=== PATIENT | male | born 1950 | race Caucasian/White ===

== ENCOUNTER → 2021-12-01 | Outpatient (CLI) | payer OTHER ==
[~2021-12-01] MED LIST: AUGMENTIN 875-1 EACH PO; CELEXA40 MG PO; COLACE 100MG C100 MG PO; ELIQUIS 2.5 MG2.5 MG PO; FERROUS SULFAT325 M2 PO; HUMERA SC; NEURONTIN400 MG PO; OMEPRAZOLE20 MG PO; OXYCODONE; PERCOCET 10-321 EACH PO; PLAQUENIL 200200 MG PO; PREDNISONE5 MG PO; PRINIVIL20 MG PO; RELAFEN 750 MG750 MG PO; SINGULAIR10 MG PO; TRAZODONE HCL100 MG PO
[2021-12-01 10:05] LABS: HEMOGLOBIN 12.9 gm/dl (14.0-17.5); RED BLOOD COUNT 4.37 M/UL (4.20-5.50); WHITE BLOOD COUNT 6.8 K/UL (4.5-11.0)
[2021-12-01 10:40] LABS: BUN/CREATININE RATIO 7 (0-10)
== END ==
LOC: OPSV2 08:53 → EDSTATUS 09:00 → OPSV2 09:00
PROVIDERS: Orthopaedic Surgery
DX: Z01.818 Encounter for other preprocedural examination (principal); I10 Essential (primary) hypertension; R94.31 Abnormal electrocardiogram [ECG] [EKG]
CPT/HCPCS: 71046; 80048; 85027; 93005

== ENCOUNTER → 2021-12-08 | Day surgery (SDC) | payer OTHER ==
[~2021-12-08] MED LIST changes: +ROXICODONE5 MG PO
== END | disposition home or self-care (01) ==
LOC: OR 06:50 → EDSTATUS 12:30
DX: S42.491A Other displaced fracture of lower end of right humerus, initial encounter for closed fracture (principal); I10 Essential (primary) hypertension; M06.9 Rheumatoid arthritis, unspecified; J60 Coalworker's pneumoconiosis; G56.20 Lesion of ulnar nerve, unspecified upper limb; Z96.653 Presence of artificial knee joint, bilateral; W17.89XA Other fall from one level to another, initial encounter; Z20.822 Contact with and (suspected) exposure to COVID-19
CPT/HCPCS: 73070; J0171; J0690; J1100; J1720; J2001; J2405; J2704; J2710; J2795; J3010; J7120

== ENCOUNTER → 2022-01-19 | Day surgery (SDC) | payer OTHER ==
[~2022-01-19] MED LIST changes: +HUMIRA INJ; +HYDROXYCHLOROQ200 MG PO; +PREDNISONE 5 MG5 MG PO
== END | disposition home or self-care (01) ==
LOC: OR 09:42
DX: T81.33XA Disruption of traumatic injury wound repair, initial encounter (principal); I96 Gangrene, not elsewhere classified; I10 Essential (primary) hypertension; M06.9 Rheumatoid arthritis, unspecified; Z56.0 Unemployment, unspecified; Z96.653 Presence of artificial knee joint, bilateral; Z20.822 Contact with and (suspected) exposure to COVID-19; K21.9 Gastro-esophageal reflux disease without esophagitis
CPT/HCPCS: 87070; 87077; 87186; 87205; J0690; J1100; J1720; J2001; J2405; J2704; J2795; J3010; J7120

== ENCOUNTER → 2022-02-01 | Outpatient (CLI) | payer OTHER | END | disposition home or self-care (01) | LOC: WCC 09:08 | DX: T81.31XA Disruption of external operation (surgical) wound, not elsewhere classified, initial encounter (principal); M25.521 Pain in right elbow; I10 Essential (primary) hypertension; Z96.698 Presence of other orthopedic joint implants; Z79.899 Other long term (current) drug therapy ==

== ENCOUNTER → 2022-02-07 | Outpatient (CLI) | payer OTHER | LOC: WCC 07:24 | DX: T81.31XA Disruption of external operation (surgical) wound, not elsewhere classified, initial encounter (principal); I10 Essential (primary) hypertension; M25.521 Pain in right elbow; Z96.698 Presence of other orthopedic joint implants; Z79.899 Other long term (current) drug therapy ==

== ENCOUNTER → 2022-02-14 | Outpatient (CLI) | payer OTHER | LOC: WCC 07:42 | DX: T81.31XD Disruption of external operation (surgical) wound, not elsewhere classified, subsequent encounter (principal); I10 Essential (primary) hypertension; M25.521 Pain in right elbow; Z96.698 Presence of other orthopedic joint implants | CPT/HCPCS: G0463 ==

== ENCOUNTER → 2022-03-01 | Outpatient (CLI) | payer OTHER | END | disposition home or self-care (01) | LOC: WCC 08:28 | DX: T81.31XA Disruption of external operation (surgical) wound, not elsewhere classified, initial encounter (principal); M25.521 Pain in right elbow; I10 Essential (primary) hypertension; Z96.698 Presence of other orthopedic joint implants; Z79.899 Other long term (current) drug therapy ==

== ENCOUNTER → 2022-03-22 | Outpatient (CLI) | payer OTHER | END | disposition home or self-care (01) | LOC: WCC 07:51 | DX: T81.31XA Disruption of external operation (surgical) wound, not elsewhere classified, initial encounter (principal); M25.521 Pain in right elbow; I10 Essential (primary) hypertension; Z96.698 Presence of other orthopedic joint implants; Z79.899 Other long term (current) drug therapy ==

== ENCOUNTER → 2022-03-29 | Outpatient (CLI) | payer OTHER | LOC: WCC 08:10 | DX: T81.31XA Disruption of external operation (surgical) wound, not elsewhere classified, initial encounter (principal); I10 Essential (primary) hypertension; M25.521 Pain in right elbow; Z96.698 Presence of other orthopedic joint implants; Z79.899 Other long term (current) drug therapy ==

== ENCOUNTER → 2022-04-19 | Outpatient (CLI) | payer OTHER | END | disposition home or self-care (01) | LOC: WCC 07:26 | PROC: 0JB70ZZ Excision of Back Subcutaneous Tissue and Fascia, Open Approach (ICD-10-PCS; principal; 2022-04-19) | DX: L89.153 Pressure ulcer of sacral region, stage 3 (principal) ==

== ENCOUNTER → 2022-05-03 | Outpatient (CLI) | payer OTHER | LOC: WCC 07:34 | DX: T81.89XA Other complications of procedures, not elsewhere classified, initial encounter (principal); I10 Essential (primary) hypertension; M06.9 Rheumatoid arthritis, unspecified; Z96.698 Presence of other orthopedic joint implants; Y83.8 Other surgical procedures as the cause of abnormal reaction of the patient, or of later complication, without mention of misadventure at the time of the procedure ==

== ENCOUNTER → 2022-05-17 | Outpatient (CLI) | payer OTHER | LOC: WCC 07:19 | DX: T81.31XA Disruption of external operation (surgical) wound, not elsewhere classified, initial encounter (principal); I10 Essential (primary) hypertension; M06.9 Rheumatoid arthritis, unspecified; Z96.698 Presence of other orthopedic joint implants; Y83.8 Other surgical procedures as the cause of abnormal reaction of the patient, or of later complication, without mention of misadventure at the time of the procedure ==

== ENCOUNTER → 2022-06-05 | Outpatient (CLI) | payer OTHER | END | disposition home or self-care (01) | LOC: WCC 10:03 | DX: S51.001A Unspecified open wound of right elbow, initial encounter (principal); I10 Essential (primary) hypertension; Z96.698 Presence of other orthopedic joint implants; Z79.899 Other long term (current) drug therapy ==

== ENCOUNTER → 2022-06-19 | Outpatient (CLI) | payer OTHER | LOC: WCC 07:35 | DX: T81.32XA Disruption of internal operation (surgical) wound, not elsewhere classified, initial encounter (principal); I10 Essential (primary) hypertension; M06.9 Rheumatoid arthritis, unspecified; Y83.4 Other reconstructive surgery as the cause of abnormal reaction of the patient, or of later complication, without mention of misadventure at the time of the procedure; Z96.698 Presence of other orthopedic joint implants ==

== ENCOUNTER → 2022-07-03 | Outpatient (CLI) | payer OTHER | END | disposition home or self-care (01) | LOC: WCC 07:43 | DX: T81.31XA Disruption of external operation (surgical) wound, not elsewhere classified, initial encounter (principal); I10 Essential (primary) hypertension; Z96.698 Presence of other orthopedic joint implants ==